=== PATIENT | female | born 1960 | race Caucasian/White ===

== ENCOUNTER 2024-09-21 06:11 | Day surgery (SDC) | payer OTHER, SELFPAY ==
[2024-09-14 12:53] VITALS: BMI 25.2
--- NOTE | 2024-09-18 06:08 | W.CON.GYNONC ---
Chief Complaint
-
Vulvar Ca
History of Present Illness
63�year�old white female menopausal since age 50, has been noting a small lesion involving her labia for the past 6
months. This became more irritating, she has not been able to have intercourse as a result of it, she was seen and evaluated by .
Nathalie, biopsy reveals invasive squamous cell carcinoma.
Past medical history significant for squamous cell carcinoma involving the nasal ernie, underwent Mohs surgery
Past surgical history Mohs surgery
Medications include vitamins and supplements
Social history patient denies tobacco drug or marijuana use, occasionally uses alcohol, she is she is a retired
schoolteacher
Family history significant for mother with breast cancer, brother with prostate cancer
Screening tests include mammography 2 years ago, she has had 2 colonoscopies
Social�History Patient�denies�ever�using�tobacco. Current�alcohol�user. Denies�any�illicit�drug�use. Occupational�Status:�Former���Teacher. Patient�has�not�had�any�occupational�exposure. Marital�Status:�Patient�is��with�5�child/children.
Gynecological�History Age�at�menopause:�50�years.�Patient�reports�5�pregnancies.�Her�age�at�first�full�term��was�29�years. No�history�of�hormone�replacement�therapy. Family�Medical�History Mother�breast�cancer
Medical History
Allergies
Allergies reflect when allergies were last updated in [facility].
doxycycline Allergy (Verified 09/17/24 10:28)
Nausea
Physical Exam
Physical Exam
Pelvic�Examination: External�:�There�is�a�1�cm�erythematous�lesion�on�the�anterior�aspect�of�right�labia�menorrhagia�involving�vestibule,�slightly�below
the�clitoral�adams,�1�cm�away�from�urethral�meatus.�The�lesion�does�not�have�any�fixation�associated�with�it.�Remainder�of�the�vulva is�unremarkable.there�ie�noemal�urethra,�anus.� Vagina:�Normal�mucosa.� Cervix:�normal�appearance,�no�discharge.
Uterus:�normal�size.� Adnexa:�No�pelvic�mass.� RVE:�no�masses�or�nodularity
General:�Well�developed,�well�nourished�patient.�In�no�acute�distress.
Neck:�No�thyromegaly.�No�cervical�lymphadenopathy.
Lungs:�Clear�to�auscultation.�Good�air�movement�bilaterally.
Cardiac:�Regular�rate.�Regular�rhythm.�No�murmurs�appreciated.
Right�Breast:�No�masses�or�dimpling.�No�nipple�discharge. Left�Breast:�No�masses�or�dimpling.�No�nipple�discharge. Abdomen:�Abdomen�is�soft.�Non�tender�to�palpation.�Non�distended.
Extremities:�No�edema. Hematologic/Lymphatic:�No�palpable�lymphadenopathy. Musculoskeletal:�Normal�range�of�motion.�Strength�and�Tone�are�normal.
Skin:Non�jaundiced.�No�petechia.�No�purpura.
Results
-
[facility], a member of [facility]
Patient Name: PAM GOINS
Date of : 1960
Reason for Exam: C51.1
Exam Date: 08/22/2024 [id number] EST
Report Status: Final
Ordering Provider: SHIARZ CANO
PCP: WILLIAM GNAT
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 Patient presents for initial staging.
TECHNIQUE: Whole-body FDG PET CT performed after 14.9 mCi of F-18 FDG IV injection in left upper extremity. Blood glucose was 84 mg/dL. Comparison: None.
TUMOR:
There is a small focal area of FDG uptake in the region of the vulva without clear soft tissue mass on CT. This demonstrates a max SUV of 6 and is most in keeping with the biopsy-proven squamous cell carcinoma. No FDG avid adenopathy. No FDG avid
metastatic disease.
HEAD AND NECK:
VISUALIZED BRAIN: Physiologic radiotracer distribution. No masses.
MUCOSAL SPACES: Physiologic radiotracer distribution. No masses.
LATERAL NECK: No adenopathy. No abnormal radiotracer uptake.
CENTRAL NECK: No radiotracer avid thyroid nodules.
CHEST:
LUNG: Physiologic radiotracer distribution. No consolidation or pleural effusion. No suspicious lung nodule.
MEDIASTINUM/LYMPH NODES: Physiologic radiotracer distribution. No adenopathy or mediastinal mass.
HEART/VASCULATURE: Physiologic radiotracer distribution. Thoracic aorta is normal in caliber.
ABDOMEN AND PELVIS:
HEPATOBILIARY: Physiologic radiotracer distribution. No suspicious liver mass. Scattered benign cysts. No biliary ductal dilatation. No calcified gallstones.
PANCREAS: Physiologic radiotracer distribution. No mass or ductal dilatation.
SPLEEN: Physiologic radiotracer distribution. No enlargement or suspicious mass.
ADRENALS: Physiologic radiotracer distribution. No mass.
KIDNEYS: Physiologic radiotracer distribution. No hydronephrosis or suspicious mass. A few punctate 1 to 2 mm calculi are seen in the left kidney.
BOWEL: Physiologic radiotracer distribution. No obstruction. Colonic diverticulosis.
RETRO/PERITONEUM: No adenopathy. No ascites.
BLADDER: Physiologic radiotracer excretion.
GENITAL TRACT: The uterus and bilateral ovaries are normal.
MSK: Physiologic radiotracer distribution. No lytic or blastic lesions.
IMPRESSION:
1. Small intense focus of FDG uptake in the region of the midline of the vulva in keeping with biopsy-proven squamous cell carcinoma with max SUV of 6. No FDG avid pelvic adenopathy. No FDG avid metastatic disease in the chest, abdomen, and pelvis.
-------- FINAL REPORT --------
Dictated By: Chet Apple
Dictated Date: 08/22/2024 14:22 ET

[facility], a member of [facility]
Patient Name: PAM GOINS
Date of : 1960
Reason for Exam: c51.1
Exam Date: 08/22/2024 [id number] EST
Report Status: Final
Ordering Provider: SHIRAZ CANO
PCP: WILLIAM GANT
HISTORY: 64 years old; Female; pathologically proven Vulvar cancer, initial staging.;
TECHNIQUE: MRI of PELVIS was performed on 1.5 Bette MRI using multiple pulse sequences in sagittal, coronal and axial planes. Contrast (Dotarem): 20 ml. Comparison: Same day PET/CT.
FINDINGS:
Vulva: Redemonstration of small midline vulvar mass measuring 18 x 3 mm (series 17, image 75) consistent with patient's pathologically proven valvular neoplasm and corresponds to FDG avid lesion on same date PET/CT. The lesion shows slightly
hyperintense signal in T2, isointense signal in T1 with intense postcontrast enhancement and diffusion restriction. Tumor is confined to the vulva with no evidence of invasion of the perineum, lower urethra, vaginal, urinary bladder or anal canal.
UTERUS: 5.7 x 3.4 x 2.1 cm, anteverted, no anatomic variants..
ENDOMETRIUM: 2 mm (normal premenopausal <16 mm; postmenopausal <5 mm bleeding, <11 mm asymptomatic).
MYOMETRIUM: Junctional zone: 7 mm (normal <8 mm). Myometrium shows no fibroids.
CERVIX: Junctional zone shows no disruption. No mass requiring further evaluation.
VAGINA: No mass or cyst.
RIGHT OVARY: Not well-visualized.
LEFT OVARY: Not well-visualized.
PERITONEUM: No free fluid.
RETROPERITONEUM: No pelvic adenopathy concerning for metastatic disease..
BLADDER: No wall thickening or mass. Urethra shows no diverticula.
MSK: No marrow replacing lesion. 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
OTHER: Partially visualized colonic diverticulosis.
IMPRESSION:
Redemonstration of midline vulvar mass measuring 18 mm confined to the vulva without invasion of the surrounding structures. No lymph node metastasis. Findings are consistent with T1, N0, M0 tumor (FIGO stage I cancer).
Communication: Routine.
-------- FINAL REPORT --------
Dictated By: Usha Moncada W
Dictated Date: 08/23/2024 06:11 ET
Assigned Physician: Mikayla Clark
Impression / Plan
-
I�spoke�with�the�patient�at�length�and�discussed�diagnosis�of�squamous�cell�carcinoma�of�the�vulva.�As�part�of�evaluation�today�Pap smear�was�performed.�My�recommendation�for�treatments�are�as�follows
#1�MRI�of�the�pelvis�will�be�done�for�better�evaluation�of�vulvar�structures�as�well�as�evaluation�of�groin�lymph�nodes #2�PET�CT�scan�will�be�done�to�determine�extent�of�metastatic�evaluation�clinically�this�is�negative
#3�Labs�for�preoperative�evaluation�will�be�done #4�patient�needs�to�see�PCP�for�preoperative�medical�clearance
#5�plan�of�treatment�is�partial�anterior�right�radical�vulvectomy,�injection�of�lesion�with�ICG�dye,�excision�of�right�groin�sentinel�lymph node�possibly�left�groin�sentinel�lymph�node,�possible�right�inguinofemoral�lymphadenectomy.
I�discussed�the�details�of�the�surgery�with�the�patient�with�a�goal�of�removing�approximately�2�cm�margin�of�tissue�laterally�as�well
as�deep.�The�tumor�encroaches�upon�midline�and�has�the�potential�to�metastasize�blood�to�right�and�left�groin.�It�is�well�lateralized
and�I�clinically�suspect�this�is�more�or�less�the�right�sided�lesion.�We�discussed�that�preservation�and�salvage�of�the�clitoris�will�not
be�possible�because�of�the�location�of�this�lesion�and�this�is�going�to�affect�sexuality�going�forward.�Patient�is�accepting�of�the�need for�obtaining�clear�margins.
Risk�of�surgery�including�infection�bleeding�injury�to�adjacent�organs�DVT�pulmonary�embolism�and�cardiovascular�complications were�discussed�and�reviewed.�Recovery�process�were�discussed�with�the�patient.�In�the�event�right�groin�lymphadenectomy�is
performed�the�patient�understands�that�we�need�to�place�a�MAX�drain�and�that�will�be�in�place�for�2�to�3�weeks�postop. The�patient�would�like�to�postpone�surgery�until�first�week�of�November�because�upcoming�daughter's�wedding�in�late�October.
Also�surgery�will�be�performed�at�[place]
[2024-09-21] VITALS (11 sets, daily range): BP systolic 113–131; BP diastolic 59–73; BMI 25.2
[2024-09-21] MEDS: TYLENOL 1000 MG PO (09:26)
[2024-09-21] MEDS: HEPARIN 5000 UNITS SC (09:26)
[2024-09-21] MEDS: NEURONTIN 300 MG PO (09:26)
[2024-09-21] MEDS: CELEBREX 200 MG PO (09:26)
[2024-09-21] MEDS: ZOFRAN 4 MG IV (14:50)
== END 2024-09-21 17:06 | disposition home or self-care (01) ==
LOC: SDS 06:11
PROVIDERS: ATTENDING PHYSICIAN Obstetrics & Gynecology Gynecologic Oncology; FAMILY PHYSICIAN Family Medicine; OTHER PHYSICIAN Obstetrics & Gynecology
DX: C51.1 Malignant neoplasm of labium minus (principal)
CPT/HCPCS: 56620; 38531; 88307; 88309; 36415; 86850; 86900; 86901; 88341; 88342

== ENCOUNTER → 2025-05-29 08:02 | Outpatient (REF) | payer OTHER, SELFPAY | LOC: WDC 08:02 | PROVIDERS: ATTENDING PHYSICIAN Obstetrics & Gynecology Gynecologic Oncology; FAMILY PHYSICIAN Family Medicine | DX: Z12.31 Encounter for screening mammogram for malignant neoplasm of breast (principal) | CPT/HCPCS: 77063; 77067 ==